=== PATIENT | female | born 1975 | race Two or more races ===

== ENCOUNTER 2019-09-18 09:53 | Emergency (ER) | payer SELFPAY ==
--- NOTE | 2019-09-18 10:02 | ED ---
Lower Extremity - HPI Summary HPI Summary: This pt is a 44 y/o female presenting to [facility] via EMS for right ankle pain s/p slipping and falling at about 09:00 today. Pt reports she was walking in the parking lot when she slipped on snow and fell. Denies head strike or LOC. Pt denies any other injuries. Denies neck pain, back pain, or UE pain. EMS administered 50 mcg of Fentanyl [employer] with moderate relief. Denies any PMHx. She denies taking any medications. Pt reports NKDA. - History of Current Complaint Stated Complaint: ANKLE INJURY Time Seen by Provider: 09/18/19 09:54 Hx Obtained From: Patient Mechanism Of Injury: Fall From A Standing Position Onset of Pain: Immediate Onset/Duration: Still Present Severity Currently: Moderate Pain Intensity: 5 Pain Scale Used: 0-10 Numeric Timing: Lasting Minutes Location: Is Discrete @ - right ankle Character Of Pain: Burning Associated Signs And Symptoms: Negative: Fever, Weakness, Dizziness, Syncope, Abdominal Pain, Knee Pain Aggravating Factor(s): Nothing Alleviating Factor(s): Nothing Able to Bear Weight: No - Allergies/Home Medications Allergies/Adverse Reactions: Allergies Allergy/AdvReac Type Severity Reaction Status Date / Time No Known Allergies Allergy Verified 09/18/19 09:57 Home Medications: Home Medications NK [No Home Medications Reported] 09/18/19 [History Confirmed 09/18/19] PMH/Surg Hx/FS Hx/Imm Hx Endocrine/Hematology History: Denies: Hx Diabetes Cardiovascular History: Denies: Hx Hypertension - Family History Known Family History: Negative: Cardiac Disease - Social History Alcohol Use: Weekly Substance Use Type: Reports: None Smoking Status (MU): Never Smoked Tobacco Review of Systems Negative: Fever, Chills ENT: Negative Cardiovascular: Negative Respiratory: Negative Musculoskeletal: Other - POSITIVE: right ankle pain All Other Systems Reviewed And Are Negative: Yes Physical Exam - Summary Physical Exam Summary: Constitutional: Well-developed, Well-nourished, Alert. (-) Distressed Skin: Warm, Dry HENT: Normocephalic; Atraumatic Eyes: Conjunctiva normal Neck: Musculoskeletal ROM normal neck. (-) JVD, (-) Stridor, (-) Tracheal deviation Cardio: Rhythm regular, rate normal, Heart sounds normal; Intact distal pulses; The pedal pulses are 2+ and symmetric. Radial pulses are 2+ and symmetric. Pulmonary/Chest wall: Effort normal. (-) Respiratory distress, (-) Wheezes, (-) Rales Abd: Soft, (-) tenderness, (-) Distension, (-) Guarding, (-) Rebound Musculoskeletal: RLE: good pulses at right lower extremity, warm and well perfused. There is tenderness localized in the lateral malleolus. Mild swelling over the lateral malleolus. Very tiny bit of developing ecchymosis on the same spot. Nothing at the knee. Nothing at the proximal fibula. No obvious signs of trauma. Neuro: Alert, Oriented x3 Psych: Mood and affect Normal Triage Information Reviewed: Yes Vital Signs On Initial Exam: Initial Vitals Temp Pulse Resp BP Pulse Ox 98.8 F 79 18 123/74 100 09/18/19 09:54 09/18/19 09:54 09/18/19 09:54 09/18/19 09:54 09/18/19 09:54 Vital Signs Reviewed: Yes Procedures - Sedation Patient Received Moderate/Deep Sedation with Procedure: No Diagnostics - Laboratory Lab Statement: Any lab studies that have been ordered have been reviewed, and results considered in the medical decision making process. - Radiology Right ankle XR Radiology Interpretation Completed By: Radiologist Summary of Radiographic Findings: IMPRESSION: No cortical disruption or suspicious trabecular irregularity to suggest fracture. #. Congruent ankle mortise. Preserved joint spaced. #. Small talocrural joint effusion. #. Mild soft tissue swelling over the lateral malleolus. Dr. Atkinson has reviewed this report. Re-Evaluation - Re-Evaluation First Eval Re-Evaluation Time: 11:09 Comment: Discussed XR results with patient. She will be discharged home with gel /air cast, crutches and follow up from her PCP. Lower Extremity Course/Dx - Course Assessment/Plan: Pt is a 44 y/o female presenting to [facility] via EMS for right ankle pain s/p slipping on snow and falling at about 09:00 today. EMS administered 50 mcg of Fentanyl. DDx small fracture vs ligamentous injury. In the ED course the pt was given Percocet. Right ankle XR obtained and shows no cortical disruption or suspicious trabecular irregularity to suggest fracture. Congruent ankle mortise. Preserved joint spaced. Small talocrural joint effusion. Mild soft tissue swelling over the lateral malleolus. Patient was placed in air/gel cast. She will be given crutches and be nonweight bearing on right leg until her pain is better. Patient will follow up with her PCP. She was given instructions to return to the ED for any worsening or new symptoms. - Diagnoses Provider Diagnoses: Right ankle sprain Discharge ED - Sign-Out/Discharge Documenting (check all that apply): Patient Departure - Discharge home - Discharge Plan Condition: Stable Disposition: HOME Patient Education Materials: Ankle Sprain (ED) Referrals: [facility] [Outside] Additional Instructions: Use crutches. You are to be nonweight bearing on right leg until your pain is better. Follow up with your primary care provider in 2-3 days. If you do not have one, please follow up with [facility]. RETURN TO THE ED FOR ANY WORSENING OR NEW SYMPTOMS. - Billing Disposition and Condition Condition: STABLE Disposition: Home - Attestation Statements Document Initiated by Anthony: Yes Documenting Scribe: Nevaeh Okeefe Provider For Whom Anthony is Documenting (Include Credential): Indra Atkinson MD Scribe Attestation: Nevaeh Keita, scribed for Indra Atkinson MD on 09/18/19 at 1840. Scribe Documentation Reviewed: Yes Provider Attestation: The documentation as recorded by the Nevaeh abdalla accurately reflects the service I personally performed and the decisions made by Indra allen MD Status of Scribe Document: Viewed
[2019-09-18] MEDS: oxyCODONE/Acetamin 5/325 MG* TAB PO ONE (10:13)
[2019-09-18 11:38] VITALS: BP 120/76
== END 2019-09-18 11:20 | disposition home or self-care (01) ==
LOC: ED 09:53
DX: S93.401A Sprain of unspecified ligament of right ankle, initial encounter (principal); W00.0XXA Fall on same level due to ice and snow, initial encounter; Y92.481 Parking lot as the place of occurrence of the external cause
CPT/HCPCS: 99282; A9270-GY